=== PATIENT | male | born 1955 | race Caucasian/White ===

== ENCOUNTER 2020-05-11 12:04 | Emergency (ER) | payer OTHER ==
--- NOTE | 2020-05-11 12:28 | ER Document Report ---
ED General - General Stated Complaint: POSSIBLE ALLERGIC REACTION Time Seen by Provider: 05/11/20 12:16 Primary Care Provider: EDY KHAN PA [Primary Care Provider] - Follow up as needed Notes: 64-year-old male presents with resolved itching skin redness hypotension confusion and dizziness after receiving gadolinium during an MRI. His pressure was 70 and they gave him p.o. Benadryl but by the time EMS showed up his blood pressure had increased, he then got 25 more of IV Benadryl and a dose of prednisone for he now feels fine. Never had this before no known allergies. - Related Data Allergies/Adverse Reactions: Gadolinium-Containing Contrast Medi Allergy (Severe, Verified 05/11/20 12:27) Anaphylaxis Past Medical History - General Information source: Patient - Social History Smoking Status: Unknown if Ever Smoked Family History: None Review of Systems - Review of Systems Notes: REVIEW OF SYSTEMS GEN: Weakness ENT: Denies sore throat, nasal discharge, ear pain EYES: Denies blurry vision, eye pain, discharge CV: Denies chest pain, palpitations, edema RESP: Denies cough, shortness of breath, wheezing GI: Denies abdominal pain, nausea, vomiting, diarrhea MSK: Denies joint pain/swelling, edema, SKIN: Denies rash, skin lesions LYMPH: Denies swollen glands/lymph nodes NEURO: Denies headache, focal weakness or numbness, dizziness PSYCH: Denies depression, suicidal or homicidal ideation PHYSICAL EXAMINATION General: No acute distress, well-nourished Head: Atraumatic, normocephalic ENT: Mouth normal, oropharynx moist, no exudates or tonsillar enlargement Eyes: Conjunctiva normal, pupils equal, lids normal Neck: No JVD, supple, no guarding CVS: Normal rate, regular rhythm, no murmurs Resp: No resp distress, equal and normal breath sounds bilaterally GI: Nondistended, soft, no tenderness to palpation, no rebound or guarding Ext: No deformities, no edema, normal range of motion in upper and lower ext Back: No CVA or midline TTP Skin: No rash, warm Lymphatic: No lymphadeopathy noted Neuro: Awake, alert. Face symmetric. GCS 15. Physical Exam - Vital signs Vitals: Temp Resp BP 97.6 F 19 142/84 H 05/11/20 12:19 05/11/20 12:19 05/11/20 12:19 Course - Re-evaluation Re-evalutation: 05/11/20 12:25 Resolved brief anaphylaxis to gadolinium now stable Already received antihistamine and prednisone, and apparently anaphylaxis improving including hypertension without epinephrine. Will observe carefully discharged with 3-5 days of prednisone Pepcid Benadryl with EpiPen. 05/11/20 14:37 Observe in ED. No further symptoms normal vital signs. DC with EpiPen, [id number] Benadryl Pepcid prednisone. Added gadolinium to allergies and computer. I have discussed with the patient there likely diagnosis, aftercare plan, follow-up plans and my usual and customary return precautions. They verbalized understanding of this. - Vital Signs Vital signs: Temp Pulse Resp BP Pulse Ox 97.6 F 13 124/81 99 05/11/20 13:01 05/11/20 13:01 05/11/20 13:01 05/11/20 13:01 Discharge - Discharge Clinical Impression: Anaphylaxis Qualifiers: Encounter type: initial encounter Qualified Code(s): T78.2XXA - Anaphylactic shock, unspecified, initial encounter Condition: Good Disposition: HOME, SELF-CARE Instructions: Anaphylaxis Kit ([facility]) Prescriptions: Diphenhydramine HCl [Benadryl 25 mg Capsule] 1 cap PO Q4 PRN #1 pkg PRN Reason: Prednisone [Deltasone 20 mg Tablet] 3 tab PO DAILY 5 Days tablet Epinephrine [Epipen 2-Phill] 0.3 mg IJ PRN PRN #1 auto.injct PRN Reason: Famotidine [Pepcid 20 mg Tablet] 20 mg PO BID #12 tablet Referrals: EDY KHAN PA [Primary Care Provider] - Follow up as needed
[2020-05-11 13:05] VITALS: BP 124/81
== END 2020-05-11 13:38 | disposition home or self-care (01) ==
LOC: ER 12:04
DX: T78.2XXA Anaphylactic shock, unspecified, initial encounter (principal); X58.XXXA Exposure to other specified factors, initial encounter
CPT/HCPCS: 99283